=== PATIENT | male | born 1930 | race Caucasian/White ===

== ENCOUNTER → 2017-01-08 | Outpatient (CLI) | payer MEDICARE, BC ==
[~2017-01-08] MED LIST: ASPI81TA3 PO; CELE200C PO; HYT5 PO; POTA5TAB PO; SIMV40TA2 PO
--- NOTE | 2017-01-08 11:49 | RADRPT ---
PROCEDURE: XR right knee. CLINICAL INDICATION: Knee pain TECHNIQUE: AP weightbearing, PA weightbearing, lateral weightbearing and sunrise views are availab le for review. COMPARISON: 07/01/2016 FINDINGS: There is moderate to severe osteoarthrosis involving the medial tibial femoral compartment, lateral tibial femoral compartment and patellofemoral compartment. This is associated with joint space narro wing, subchondral sclerosis and osteophytosis. There are calcified loose bodies in the suprapatellar bursa. There is otherwise normal mineralization, architecture and alignment. No fractures are identified. No osseous lesions are identified. The soft tissues are unremarkable. There are arterial vascular calcifications. IMPRESSION: Moderate to severe osteoarthrosis involving the medial tibial femoral compartment, lateral tibial fe moral compartment and patellofemoral compartment. RPTAT: [facility] .Brandin Jhaveri MD, MD Date Time Electronically viewed and signed by .Brandin Jhaveri MD, on 01/08/2017 11:49 .B/
== END | disposition home or self-care (01) ==
LOC: HKI 09:19
PROVIDERS: ATTEND Orthopaedic Surgery
DX: M17.11 Unilateral primary osteoarthritis, right knee (principal); M25.561 Pain in right knee; Z96.652 Presence of left artificial knee joint
CPT/HCPCS: 20610; 73564; G0463; J1030

== ENCOUNTER → 2017-05-10 | Outpatient (CLI) | END | disposition home or self-care (01) | DX: M25.561 Pain in right knee (principal); M17.11 Unilateral primary osteoarthritis, right knee; Z96.652 Presence of left artificial knee joint ==